=== PATIENT | male | born 1980 | race Two or more races ===

== ENCOUNTER 2018-10-02 02:05 | Inpatient (IN) | payer MEDICAID ==
[~2018-10-02] VITALS: Ht 154.9 cm; Wt 81.6 kg
[2018-10-02] VITALS (7 sets, daily range): BP systolic 109–138; BP diastolic 69–79
[2018-10-02] MEDS ORDERED: NKM (02:16)
[2018-10-02] MEDS ORDERED: Ketorolac 30mg Inj IV ONE (02:30)
[2018-10-02] MEDS ORDERED: Morphine Sulfate 4mg/ml Inj (IV/IM USE ONLY) IVP ONE (02:30)
[2018-10-02 02:52] LABS: APPEARANCE,URINE CLEAR; BILIRUBIN, URINE 1+ (NEGATIVE); GLUCOSE, URINE (UA) NEGATIVE (NEGATIVE); KETONES,URINE 1+ (NEGATIVE); LEUKOCYTE ESTERASE ,URINE 1+ (NEGATIVE); NITRITE,URINE NEGATIVE (NEGATIVE); PH,URINE 5 (4.5-8.0); PROTEIN,URINE 2+ (NEGATIVE); UROBILINOGEN,URINE 1 MG/DL (0.0-1.0)
[2018-10-02 02:53] LABS: BASOPHILS % (AUTO) 0.7 % (0.0-2.0); EOSINOPHILS % (AUTO) 0.4 % (0.0-3.0); HEMATOCRIT 50.5 % (42.0-52.0); HEMOGLOBIN 17.1 G/DL (14.2-18.0); LYMPHOCYTES % (AUTO) 12.7 % (20.0-45.0); MEAN CORPUSCULAR VOLUME 85 FL (80-99); MONOCYTES % (AUTO) 7.5 % (1.0-10.0); NEUTROPHILS % (AUTO) 78.7 % (45.0-75.0); PLATELET COUNT 324 K/UL (150-450); RED BLOOD COUNT 5.93 M/UL (4.70-6.10); RED CELL DISTRIBUTION WIDTH 10.5 % (11.6-14.8); WHITE BLOOD COUNT 16.1 K/UL (4.8-10.8)
[2018-10-02 03:02] LABS: ANION GAP 11 mmol/L (5-15); BLOOD UREA NITROGEN 20 mg/dL (7-18); CALCIUM 9.1 MG/DL (8.5-10.1); CARBON DIOXIDE 24 MMOL/L (21-32); CHLORIDE 101 MMOL/L (98-107); CREATININE 1.6 MG/DL (0.55-1.30); POTASSIUM 3.6 MMOL/L (3.5-5.1); SODIUM 136 MMOL/L (136-145)
[2018-10-02 03:11] LABS: COLOR,URINE YELLOW
[2018-10-02 03:12] LABS: ALANINE AMINOTRANSFERASE 56 U/L (12-78); ALBUMIN 3.8 G/DL (3.4-5.0); ALBUMIN/GLOBULIN RATIO 0.9 (1.0-2.7); ALKALINE PHOSPHATASE 93 U/L (46-116); ASPARTATE AMINO TRANSFERASE 22 U/L (15-37); BILIRUBIN,TOTAL 1.1 MG/DL (0.2-1.0)
[2018-10-02 03:20] LABS: BILIRUBIN,DIRECT 0.2 MG/DL (0.0-0.3)
[2018-10-02] MEDS ORDERED: cefTRIAXone 1 GM in NS 55 ML IVPB ONE (04:00)
[2018-10-02] MEDS ORDERED: Tamsulosin 0.4mg cap ORAL ONE (04:15)
--- NOTE | 2018-10-02 05:14 | Emergency Room Report ---
History of Present Illness General Chief Complaint: Abdominal Pain Source: Patient Present Illness HPI 38-year-old male presents ED for evaluation. Complaining of sided abdominal pain 2 weeks. Left-sided, radiating towards the groin, 10 out of 10, sharp. States that he was seen at another ER he was told he had kidney stones. Does not remember which ER. Does not know what medications he was prescribed. Denies fevers or chills. Notes nausea and vomiting. Denies chest pain or shortness of breath. No other aggravating relieving factors. Denies any other associated symptoms Allergies: Coded Allergies: No Known Allergies (Unverified , 10/02/18) Patient History Past Medical History: other - kidney stones Past Surgical History: none Pertinent Family History: none Social History: Denies: smoking, alcohol use, drug use Immunizations: UTD Reviewed Nursing Documentation: PMH: Agreed; PSxH: Agreed Nursing Documentation-PM Past Medical History: No Stated History Hx Neurological Problems: Yes - renal stone Review of Systems All Other Systems: negative except mentioned in HPI Physical Exam Vital Signs Date Time Temp Pulse Resp B/P (MAP) Pulse Ox O2 Delivery O2 Flow Rate FiO2 10/02/18 02:10 97.7 93 18 130/86 96 Room Air Sp02 EP Interpretation: reviewed, normal General Appearance: alert, GCS 15, non-toxic, mild distress Head: normocephalic, atraumatic Eyes: bilateral eye normal inspection, bilateral eye PERRL ENT: hearing grossly normal, normal pharynx, no angioedema, normal voice Neck: full range of motion, supple/symm/no masses Respiratory: chest non-tender, lungs clear, normal breath sounds, speaking full sentences Cardiovascular #1: regular rate, rhythm, no edema Cardiovascular #2: 2+ carotid (R), 2+ carotid (L), 2+ radial (R), 2+ radial (L) , 2+ dorsalis pedis (R), 2+ dorsalis pedis (L) Gastrointestinal: normal bowel sounds, soft, non-distended, no guarding, no rebound, tenderness Rectal: deferred Genitourinary: normal inspection, CVA tenderness (L) Musculoskeletal: back normal, gait/station normal, normal range of motion, non- tender Neurologic: alert, oriented x3, responsive, motor strength/tone normal, sensory intact, speech normal Psychiatric: judgement/insight normal, memory normal, mood/affect normal, no suicidal/homicidal ideation Reflexes: 3+ bicep (R), 3+ bicep (L), 3+ tricep (R), 3+ tricep (L), 3+ knee (R) , 3+ knee (L) Skin: normal color, no rash, warm/dry, well hydrated Lymphatic: no adenopathy Medical Decision Making Diagnostic Impression: Primary Impression: Kidney stone Additional Impressions: Renal insufficiency Pyelonephritis ER Course Hospital Course 38-year-old M presents to ED with L flank pain Differential diagnosis includes-appendicitis, cholecystitis, kidney stone, pyelonephritis Clinical course Patient placed on stretcher. After initial history and physical I ordered labs , IV fluids, pain medications and CT scan Labs - marked leukocytosis, Cr 1.6, LFTs normal, UA - gross blood + bacteria CT scan shows 4mm stone on L with hydronephrosis/perinephric stranding Given leukocytosis, perinephric stranding I believe patient should be admitted. Antibiotics given. given flomax Dr Tay (urology) consulted. patient will be admitted to Dr Arrington I feel this is a highly complex case requiring extensive working including EKG/ Rhythm strip, Xray/CT/US, Blood/urine lab work, repeat exams while in ED, and administration of strong opiates/narcotics for pain control, admission to hospital or close patient follow up. Diagnosis - kidney stone, pyelonephritis, renal insufficiency Admitted to floor in serious condition Labs Test 10/02/18 02:18 10/02/18 02:39 Urine Color Yellow Urine Appearance Clear Urine pH 5 (4.5-8.0) Urine Specific [place] 1.030 (1.005-1.035) Urine Protein 2+ (NEGATIVE) Urine Glucose (UA) Negative (NEGATIVE) Urine Ketones 1+ (NEGATIVE) Urine Blood 5+ (NEGATIVE) Urine Nitrite Negative (NEGATIVE) Urine Bilirubin 1+ (NEGATIVE) Urine Ictotest Positive (NEGATIVE) Urine Urobilinogen 1 MG/DL (0.0-1.0) Urine Leukocyte Esterase 1+ (NEGATIVE) Urine RBC 40-60 /HPF (0 - 0) Urine WBC 0-2 /HPF (0 - 0) Urine Squamous Epithelial Cells Few /LPF (NONE/OCC) Urine Calcium Oxalate Crystals Many /LPF (NONE) Urine Bacteria Moderate /HPF (NONE) Urine Mucus Moderate /LPF (NONE/OCC) White Blood Count 16.1 K/UL (4.8-10.8) Red Blood Count 5.93 M/UL (4.70-6.10) Hemoglobin 17.1 G/DL (14.2-18.0) Hematocrit 50.5 % (42.0-52.0) Mean Corpuscular Volume 85 FL (80-99) Mean Corpuscular Hemoglobin 28.9 PG (27.0-31.0) Mean Corpuscular Hemoglobin Concent 33.9 G/DL (32.0-36.0) Red Cell Distribution Width 10.5 % (11.6-14.8) Platelet Count 324 K/UL (150-450) Mean Platelet Volume 6.2 FL (6.5-10.1) Neutrophils (%) (Auto) 78.7 % (45.0-75.0) Lymphocytes (%) (Auto) 12.7 % (20.0-45.0) Monocytes (%) (Auto) 7.5 % (1.0-10.0) Eosinophils (%) (Auto) 0.4 % (0.0-3.0) Basophils (%) (Auto) 0.7 % (0.0-2.0) Sodium Level 136 MMOL/L (136-145) Potassium Level 3.6 MMOL/L (3.5-5.1) Chloride Level 101 MMOL/L (98-107) Carbon Dioxide Level 24 MMOL/L (21-32) Anion Gap 11 mmol/L (5-15) Blood Urea Nitrogen 20 mg/dL (7-18) Creatinine 1.6 MG/DL (0.55-1.30) Estimat Glomerular Filtration Rate 48.9 mL/min (>60) Glucose Level 118 MG/DL (74-106) Calcium Level 9.1 MG/DL (8.5-10.1) Total Bilirubin 1.1 MG/DL (0.2-1.0) Direct Bilirubin 0.2 MG/DL (0.0-0.3) Aspartate Amino Transf (AST/SGOT) 22 U/L (15-37) Alanine Aminotransferase (ALT/SGPT) 56 U/L (12-78) Alkaline Phosphatase 93 U/L (46-116) Total Protein 7.9 G/DL (6.4-8.2) Albumin 3.8 G/DL (3.4-5.0) Globulin 4.1 g/dL Albumin/Globulin Ratio 0.9 (1.0-2.7) Lipase 315 U/L (73-393) CT/MRI/US Diagnostic Results CT/MRI/US Diagnostic Results : Imaging Test Ordered: CT A/P Impression 4 mm stone is seen in the distal left ureter resulting in mild left-sided hydroureteronephrosis associated perinephric fat stranding. Last Vital Signs Date Time Temp Pulse Resp B/P (MAP) Pulse Ox O2 Delivery O2 Flow Rate FiO2 10/02/18 02:56 88 18 Room Air 10/02/18 02:10 97.8 138/79 97 Status: improved Disposition: ADMITTED INPATIENT Condition: Serious Referrals: NOT CHOSEN IPA/,REFERRING (PCP) Baudilio House MD Oct 02, 2018 05:14
[2018-10-02] MEDS ORDERED: IBUPROFEN100 M2 PO (06:33)
--- NOTE | 2018-10-02 09:05 | Consultation ---
History of Present Illness General Date patient seen: Oct 02, 2018 Present Illness Allergies: Coded Allergies: No Known Allergies (Unverified , 10/02/18) Medication History Scheduled No Known Medications* (NKM - No Known Medications*), 0 ., (Reported) Miscellaneous Medications Ibuprofen (Ibuprofen), 600 MG PO, (Reported) Patient History Healthcare decision maker Resuscitation status Advanced Directive on File Physical Exam Last 24 Hour Vital Signs Date Time Temp Pulse Resp B/P (MAP) Pulse Ox O2 Delivery O2 Flow Rate FiO2 10/02/18 06:15 98.0 75 18 115/74 (88) 97 10/02/18 06:00 98.4 77 18 129/69 100 Room Air 10/02/18 05:50 98.4 77 18 129/69 100 Room Air 10/02/18 02:56 88 18 Room Air 10/02/18 02:10 97.8 88 18 138/79 97 Room Air 10/02/18 02:10 97.7 93 18 130/86 96 Room Air Laboratory Tests Test 10/02/18 02:18 10/02/18 02:39 Urine Color Yellow Urine Appearance Clear Urine pH 5 (4.5-8.0) Urine Specific [place] 1.030 (1.005-1.035) Urine Protein 2+ (NEGATIVE) H Urine Glucose (UA) Negative (NEGATIVE) Urine Ketones 1+ (NEGATIVE) H Urine Blood 5+ (NEGATIVE) H Urine Nitrite Negative (NEGATIVE) Urine Bilirubin 1+ (NEGATIVE) H Urine Ictotest Positive (NEGATIVE) Urine Urobilinogen 1 MG/DL (0.0-1.0) H Urine Leukocyte Esterase 1+ (NEGATIVE) H Urine RBC 40-60 /HPF (0 - 0) H Urine WBC 0-2 /HPF (0 - 0) Urine Squamous Epithelial Cells Few /LPF (NONE/OCC) Urine Calcium Oxalate Crystals Many /LPF (NONE) Urine Bacteria Moderate /HPF (NONE) H Urine Mucus Moderate /LPF (NONE/OCC) H White Blood Count 16.1 K/UL (4.8-10.8) H Red Blood Count 5.93 M/UL (4.70-6.10) Hemoglobin 17.1 G/DL (14.2-18.0) Hematocrit 50.5 % (42.0-52.0) Mean Corpuscular Volume 85 FL (80-99) Mean Corpuscular Hemoglobin 28.9 PG (27.0-31.0) Mean Corpuscular Hemoglobin Concent 33.9 G/DL (32.0-36.0) Red Cell Distribution Width 10.5 % (11.6-14.8) L Platelet Count 324 K/UL (150-450) Mean Platelet Volume 6.2 FL (6.5-10.1) L Neutrophils (%) (Auto) 78.7 % (45.0-75.0) H Lymphocytes (%) (Auto) 12.7 % (20.0-45.0) L Monocytes (%) (Auto) 7.5 % (1.0-10.0) Eosinophils (%) (Auto) 0.4 % (0.0-3.0) Basophils (%) (Auto) 0.7 % (0.0-2.0) Sodium Level 136 MMOL/L (136-145) Potassium Level 3.6 MMOL/L (3.5-5.1) Chloride Level 101 MMOL/L (98-107) Carbon Dioxide Level 24 MMOL/L (21-32) Anion Gap 11 mmol/L (5-15) Blood Urea Nitrogen 20 mg/dL (7-18) H Creatinine 1.6 MG/DL (0.55-1.30) H Estimat Glomerular Filtration Rate 48.9 mL/min (>60) Glucose Level 118 MG/DL (74-106) H Calcium Level 9.1 MG/DL (8.5-10.1) Total Bilirubin 1.1 MG/DL (0.2-1.0) H Direct Bilirubin 0.2 MG/DL (0.0-0.3) Aspartate Amino Transf (AST/SGOT) 22 U/L (15-37) Alanine Aminotransferase (ALT/SGPT) 56 U/L (12-78) Alkaline Phosphatase 93 U/L (46-116) Total Protein 7.9 G/DL (6.4-8.2) Albumin 3.8 G/DL (3.4-5.0) Globulin 4.1 g/dL Albumin/Globulin Ratio 0.9 (1.0-2.7) L Lipase 315 U/L (73-393) Height (Feet): 5 Height (Inches): 6.00 Weight (Pounds): 186 Medications Current Medications Medications (Trade) Dose Ordered Sig/Sussy Route PRN Reason Start Time Stop Time Status Last Admin Dose Admin Acetaminophen (Tylenol) 650 mg Q4H PRN ORAL Mild Pain/Temp > 100.5 10/02/18 08:00 11/01/18 07:59 Ceftriaxone Sodium 1 gm/ Dextrose 55 ml @ 110 mls/hr DAILY IVPB 10/02/18 09:30 10/09/18 09:29 Ketorolac Tromethamine (Toradol 30mg) 15 mg Q6HR IV 10/02/18 08:30 10/07/18 08:29 Sodium Chloride 1,000 ml @ 70 mls/hr [id number] IV 10/02/18 08:00 11/01/18 07:59 Assessment/Plan Assessment/Plan seen dictated Lazarus Valdivia Oct 02, 2018 09:05
[2018-10-02] MEDS ORDERED: Norco 5mg/325mg tab ORAL PRN (09:15)
[2018-10-02] MEDS: Ketorolac 30mg Inj IV SCH ×2 (09:19→12:00)
--- NOTE | 2018-10-02 10:05 | Diagnostic Imaging Report ---
Indication: Epigastric pain and flank pain for one week Technique: Spiral acquisitions obtained through the abdomen and pelvis. No oral or IV contrast, per urinary stone protocol. Multiplanar reconstructions were generated. Total dose length product 906.96 mGycm. CTDIvol(s) 16.58 mGy. Dose reduction achieved using automated exposure control Comparison: None Findings: 5 x 4 mm calculus is seen in the distal left ureter approximately 2 cm proximal to the ureterovesical junction. There is resultant mild left hydroureter and hydronephrosis. There is slight perinephric fat stranding. No right renal or ureteral calculi, hydronephrosis, or hydroureter. Lack of IV contrast limits assessment of the renal parenchyma. No gross renal parenchymal mass or cyst demonstrated. Lack of IV contrast limits assessment of the other solid organs. The liver, gallbladder, bile ducts, pancreas, spleen, adrenals are unremarkable. No retroperitoneal or mesenteric mass or adenopathy. No pelvic mass or adenopathy. The appendix is normal. No evidence of diverticulosis or diverticulitis. No small bowel distention. No free or loculated intraperitoneal gas or fluid is evident. The included lung bases demonstrate posterior dependent atelectatic changes. The bones demonstrate degenerative spondylosis changes. Impression: Positive for 5 x 4 mm left distal ureteral calculus, resulting in mild hydronephrosis and hydroureter No other significant abnormality demonstrated This agrees with the preliminary interpretation provided overnight by [facility] teleradiology service. The CT scanner at [facility] is accredited by the [employer] and the scans are performed using protocols designed to limit radiation exposure to as low as reasonably achievable to attain images of sufficient resolution adequate for diagnostic evaluation.
[2018-10-02] MEDS: cefTRIAXone 1 GM in D5W 55 ML IVPB SCH (10:24)
--- NOTE | 2018-10-02 16:33 | Consultation ---
Consult Note Consult Note asked to eval for Cr 1.6 38-year-old male presents ED for evaluation. Complaining of sided abdominal pain 2 weeks. Left-sided, radiating towards the groin, 10 out of 10, sharp. States that he was seen at another ER he was told he had kidney stones. Does not remember which ER. Does not know what medications he was prescribed. Denies fevers or chills. Notes nausea and vomiting. Denies chest pain or shortness of breath. No other aggravating relieving factors. Denies any other associated symptoms No Known Allergies (Unverified , 10/02/18) Past Medical History: No Stated History Hx Neurological Problems: Yes - renal stone examined data reviewed Assessment/Plan Renal failure- dehydration kidney stone Pyelonephritis Hydrate monitor renal parameters avoid nephrotoxics Uro? Mahendra Oshea MD Oct 02, 2018 16:33
[2018-10-02] MEDS ORDERED: Hydromorphone 0.5mg/0.5ml inj IVP PRN ×2 (16:45)
[2018-10-02] MEDS: D5NS 1,000 ML IV SCH (17:16)
--- NOTE | 2018-10-02 18:15 | Consultation ---
DATE OF CONSULTATION: 10/02/2018 INFECTIOUS DISEASES CONSULTATION CONSULTING PHYSICIAN: Trell Palacio M.D. PRIMARY ATTENDING PHYSICIAN: Casey Arrington M.D. REASON FOR CONSULTATION: Pyelonephritis. HISTORY OF PRESENT ILLNESS: The patient is a 38-year-old male admitted today complaining of abdominal pain and nausea. The patient symptoms started two weeks ago. He went to another medical facility. He was diagnosed with having a stone. He does not remember passing a stone. At the time of admission had leukocytosis of 16.1. PAST MEDICAL HISTORY: Insignificant. ALLERGIES: No known drug allergies. MEDICATIONS: Getting ceftriaxone, Tylenol + hydrocodone, acetaminophen, sodium chloride. SOCIAL HISTORY: Originally from [facility]. Work with glass. . Denies alcohol, drug abuse, or smoking. REVIEW OF SYSTEMS: No fever. No chills. Had nausea. No vomiting. Had change in urine color, did become slightly red, has abdominal pain in the left lower abdomen. PHYSICAL EXAMINATION: VITAL SIGNS: Temperature 98, pulse 74, blood pressure 116/71. No fever since admission. GENERAL APPEARANCE: Well developed, no acute distress. HEAD AND NECK: [place] conjunctiva. HEART: S1 and S2 regular. LUNGS: Clear ABDOMEN: Soft. There is some tenderness in the left lower quadrant. EXTREMITIES: No edema. LABORATORY AND DIAGNOSTIC DATA: WBC 16.1, hemoglobin 17.9, hematocrit 50.5, and platelets 324. Sodium 136, potassium 3.6, chloride 101, bicarbonate 24, BUN 20, creatinine 1.6, glucose 118. CT scan of the abdomen and pelvis showed left distal ureter calculus resulting in mild hydronephrosis and hydroureter. IMPRESSION: Left hydronephrosis and hydroureter secondary to ureteral stone. May have also infection, urinary tract infection. The patient have renal failure. RECOMMENDATION: We will continue with Rocephin. The patient will follow up by the urologist. At the end of my exam, I thank Dr. Arrington for involving me in the care of this patient and we will follow up the urine culture. Trell Palacio M.D. DR: [place] JOB#: [id number] CC: JAVED
[2018-10-02] MEDS ORDERED: Tamsulosin 0.4mg cap ORAL SCH (21:00)
--- NOTE | 2018-10-02 22:15 | Consultation ---
DATE OF CONSULTATION: 10/02/2018 UROLOGY CONSULTATION: CONSULTING PHYSICIAN: Bimal Tay M.D. REFERRING PHYSICIAN: Casey Arrington M.D. CHIEF COMPLAINT/HISTORY OF PRESENT ILLNESS: I was asked by Dr. Arrington to evaluate this 38-year-old gentleman regarding a history of a distal left ureteral stone with hydronephrosis and colic secondary to same. Previously, the patient was seen at [facility] approximately a week ago. At that time, a CT scan revealed a proximal left ureteral stone by his report. He was sent home for conservative management of the same. He now presented here with a history of some recurrent left-sided abdominal and flank pain. He had a repeat CT scan revealing a 4 mm stone in the distal left ureter 2 cm above the UVJ. The patient was admitted and placed on antibiotics and Toradol. His pain has resolved, but given the above, I was asked to evaluate the patient. PAST MEDICAL HISTORY: Kidney stone. PAST SURGICAL HISTORY: None. MEDICATIONS: Please see the chart for current medications administration details. ALLERGIES: No known drug allergies. SOCIAL HISTORY: Unremarkable for tobacco, alcohol, or drug use. FAMILY HISTORY: Noncontributory. REVIEW OF SYSTEMS: A 14-system review of systems was essentially unremarkable outside the findings described above. PHYSICAL EXAMINATION: GENERAL: The patient is a young gentleman, awake, alert, oriented x4, pleasant, no obvious distress. HEENT: NC/AT. EOMI. NECK: Supple. Full range of motion. Oropharynx clear. Chest within normal limits. ABDOMEN: Soft, nontender, and nondistended. EXTREMITIES: Well perfused. No cyanosis, clubbing, or edema. BACK: No CVA tenderness to percussion. NEUROLOGIC: Nonfocal. LABORATORY DATA: White blood cell count 16.1, hematocrit 50.5, and platelets 324. Sodium 136, potassium 3.6, chloride 101, bicarbonate 24, BUN 20, creatinine 1.6, glucose 118, and calcium 9.1. LFTs within normal limits. Urinalysis, specific gravity 1.030, pH 5.0. Dip test notable for 2+ protein, 1+ ketones, 5+ occult blood, 1+ bilirubin, 1+ leukocyte esterase. Microanalysis with 40 to 60 red and 0 to 2 white blood cells per high-power field and moderate bacteria seen. DIAGNOSTIC IMAGING: CT scan of the abdomen and pelvis reveals a 4 x 5 mm distal left ureteral calculus approximately 2 cm proximal to the ureterovesical junction. There is mild hydronephrosis and hydroureter secondary to the same. There is no other significant abnormality demonstrated. ASSESSMENT AND PLAN: In summary, the patient is a 38-year-old gentleman with a history of a 4 mm stone in the distal left ureter. He was previously seen at [facility] and the stone was in the proximal ureter. He was admitted for pain control, but feels better after antibiotics and Toradol. His physical exam does not reveal any CVA tenderness or abdominal tenderness. Laboratory data is notable for elevated white blood cell count and a borderline creatinine. Diagnostic imaging reveals a stone described above. The patient's stone is migrating and moving and appears to be in the process of passing. It is now close to the ureterovesical junction. I would recommend sending him home with Flomax 0.4 mg p.o. daily and on hyperhydration in an effort to pass the stone. He understands that the stone has a good chance of passing on its own, but if it has not passed within a week or 2, that he needs to follow up with a plan to contact the provider to ensure that it is removed if necessary. The patient verbalized understanding of the same. Thank you for allowing me to participate in the care of this nice young man. Please do not hesitate to contact me for any questions that you may further have regarding his care. I will be happy to see him with you as needed. Bimal Tay M.D. DR: EDDIE JOB#: [id number] CC:
[2018-10-03] VITALS: BP 120/75
--- NOTE | 2018-10-03 02:00 | Consultation ---
DATE OF CONSULTATION: 10/02/2018 PAIN MANAGEMENT CONSULTATION CONSULTING PHYSICIAN: Ping Arshad M.D. REFERRING PHYSICIAN: Casey Arrington M.D. PHYSICIAN CRIBBING SETTER: YUNI Dick. CHIEF COMPLAINT: Left flank pain. HISTORY OF PRESENT ILLNESS: This is a 38-year-old male who is being seen on the Med/Surg floor of [facility] for initial pain management consultation. The patient was admitted under the care of Dr. Arrington complaining of left flank pain over the past 2 weeks. He is rating the pain as 9/10, it is a sharp pain. He was found to have kidney stones and hydronephrosis and pyelonephritis. He is being seen by an urologist at this time. We were consulted so that the patient would have adequate pain control while here in the hospital. PAST MEDICAL HISTORY: Kidney stones. SURGICAL HISTORY: Denies. ALLERGIES: No known drug allergies. SOCIAL HISTORY: Denies smoking tobacco, drinking alcohol, or IV drug abuse. REVIEW OF SYSTEMS: Denies rash, fever, chills, sweating, dizziness, drowsiness, blurred vision, sore throat, or change in weight. No shortness of breath or chest pain. No nausea, vomiting, diarrhea, or blood in the stool or urine. No bowel or bladder incontinence. No dysuria. He is complaining of flank pain. PHYSICAL EXAMINATION: GENERAL: Alert, awake, and oriented. VITAL SIGNS: Blood pressure 116/74, heart rate 75, oxygen saturation 93%, respirations 18, and temperature 98.6 degrees Fahrenheit. HEENT: PERRLA. NECK: Range of motion is full in all directions. No tenderness to paracervical muscles. No adenopathy. LUNGS: Decreased breath sounds bilaterally. HEART: Regular. ABDOMEN: Obese. BACK: CVA tenderness. EXTREMITIES: No cyanosis. No clubbing. No edema. NEUROLOGIC: Nonfocal. ASSESSMENT AND PLAN: This is a 38-year-old male with pyelonephritis, kidney stones, back pain. We will start the patient on [place] 5/325mg PO 1 tab Q4H PRN pain. D/w Dr. Arshad and he concurred. Thank you for consultation. Ping Arshad M.D. YUNI Dick DR: LOIDA JOB#: [id number] CC: JAVED
--- NOTE | 2018-10-03 02:30 | History and Physical Report ---
DATE OF ADMISSION: 10/02/2018 HISTORY OF PRESENT ILLNESS: The patient admitted for kidney stones, pyelonephritis. The patient has been having pain in the groin for a couple of days. He has a history of smoking. Some mild hematuria is noted. The patient speaks Latvian only. However, denies nausea, vomiting, or diarrhea. PAST MEDICAL HISTORY: Significant for kidney stones. PAST SURGICAL HISTORY: None. MEDICATIONS: None. ALLERGIES: No known allergies. SOCIAL HISTORY: History of smoking. No history of alcohol or illicit drugs. FAMILY HISTORY: Noncontributory. REVIEW OF SYSTEMS: HEENT: Denies headaches. PULMONARY: Denies shortness of breath. Denies cough. CARDIOVASCULAR: Denies chest pain. GASTROINTESTINAL: Denies nausea, vomiting, or diarrhea. The patient does have groin/flank pain for a couple of days. CENTRAL NERVOUS SYSTEM: No change in vision or speech pattern. PHYSICAL EXAMINATION: VITAL SIGNS: Temperature 98.5, pulse is 94, and blood pressure is 170/69. HEENT: PERRLA. NECK: Supple. No lymphadenopathy. CHEST: Clear to auscultation. CARDIOVASCULAR: Regular rate and rhythm. No murmurs or extra sounds. GASTROINTESTINAL: Soft, nontender, and nondistended. No organomegaly. EXTREMITIES: No edema. Moves all four extremities. NEUROLOGIC: Sensory intact to light touch. Reflexes equal on both sides. Dr. Tay has been consulted to see this patient as well as Dr. Trell Palacio for the leukocytosis. WBC of , hemoglobin 17. Sodium 136, potassium 3.6, BUN of 20, and creatinine 1.6. Dr. Oshea also consulted for the azotemia. ASSESSMENT/PLAN: Azotemia, leukocytosis, kidney stones. Dr. Tay, Dr. Oshea, and Dr. Palacio have been consulted to see the patient. Casey Arrington M.D. DR: EMI JOB#: [id number] CC:
[2018-10-03] MEDS: D5NS 1,000 ML IV SCH (03:17)
[2018-10-03 04:00] VITALS: BP 108/64
[2018-10-03 08:11] LABS: EOSINOPHILS % (AUTO) 1.7 % (0.0-3.0); HEMATOCRIT 49.2 % (42.0-52.0); HEMOGLOBIN 16.8 G/DL (14.2-18.0); LYMPHOCYTES % (AUTO) 25.3 % (20.0-45.0); MEAN CORPUSCULAR VOLUME 86 FL (80-99); MONOCYTES % (AUTO) 7.8 % (1.0-10.0); NEUTROPHILS % (AUTO) 64.2 % (45.0-75.0); PLATELET COUNT 320 K/UL (150-450); RED BLOOD COUNT 5.72 M/UL (4.70-6.10); RED CELL DISTRIBUTION WIDTH 10.8 % (11.6-14.8); WHITE BLOOD COUNT 6.3 K/UL (4.8-10.8)
[2018-10-03 08:22] VITALS: BP 130/80
[2018-10-03] MEDS: cefTRIAXone 1 GM in D5W 55 ML IVPB SCH (08:25)
[2018-10-03 08:53] LABS: ALANINE AMINOTRANSFERASE 42 U/L (12-78); ALBUMIN 3.2 G/DL (3.4-5.0); ALBUMIN/GLOBULIN RATIO 0.9 (1.0-2.7); ALKALINE PHOSPHATASE 86 U/L (46-116); ANION GAP 6 mmol/L (5-15); ASPARTATE AMINO TRANSFERASE 18 U/L (15-37); BLOOD UREA NITROGEN 10 mg/dL (7-18); CALCIUM 8.3 MG/DL (8.5-10.1); CARBON DIOXIDE 25 MMOL/L (21-32); CHLORIDE 109 MMOL/L (98-107); CHOLESTEROL 166 MG/DL (< 200); HDL CHOLESTEROL 37 MG/DL (40-60); POTASSIUM 3.5 MMOL/L (3.5-5.1); SODIUM 140 MMOL/L (136-145); TRIGLYCERIDES 113 MG/DL (30-150)
[2018-10-03] MEDS ORDERED: Pantoprazole Inj IVP SCH (09:00)
[2018-10-03] MEDS ORDERED: TAMSULOSIN HCL0.4 MG ORAL (09:29)
--- NOTE | 2018-10-03 14:07 | Nephrology Progress Note ---
Assessment/Plan Problem List: (1) Renal insufficiency (2) Kidney stone (3) Pyelonephritis Assessment Renal failure- cr wnl dehydration- resolved kidney stone Pyelonephritis Plan stop Hydrate monitor renal parameters avoid nephrotoxics Uro? ? DC Subjective ROS Limited/Unobtainable: No Interval Events/Complaints seen 9 am Objective Objective Last 24 Hour Vital Signs Date Time Temp Pulse Resp B/P (MAP) Pulse Ox O2 Delivery O2 Flow Rate FiO2 10/03/18 09:00 Room Air 10/03/18 08:22 98.4 76 19 130/80 (97) 100 10/03/18 04:00 97.7 75 19 108/64 (79) 97 10/03/18 00:00 97.9 70 19 120/75 (90) 96 10/02/18 21:30 Room Air 10/02/18 20:00 98.5 85 19 118/72 (87) 97 10/02/18 16:00 98.1 87 18 109/69 (82) 97 Intake and Output 10/02/18 10/03/18 19:00 07:00 Intake Total 590 ml 1900 ml Output Total 650 ml Balance 590 ml 1250 ml Intake Oral 800 ml IV Total 590 ml 1100 ml Output Urine Total 650 ml # Voids 2 Current Medications Medications (Trade) Dose Ordered Sig/Sussy Route PRN Reason Start Time Stop Time Status Last Admin Dose Admin Acetaminophen (Tylenol) 650 mg Q4H PRN ORAL Mild Pain/Temp > 100.5 10/02/18 08:00 11/01/18 07:59 Acetaminophen/ Hydrocodone Bitart ([place] 5/325) 1 tab Q4H PRN ORAL Moderate Pain (Pain Scale 4-6) 10/02/18 09:15 10/09/18 09:14 Ceftriaxone Sodium 1 gm/ Dextrose 55 ml @ 110 mls/hr DAILY IVPB 10/02/18 09:30 10/09/18 09:29 10/03/18 08:25 Dextrose/Sodium Chloride 1,000 ml @ 100 mls/hr Q10H IV 10/02/18 16:41 11/01/18 16:40 10/03/18 03:17 Hydromorphone HCl (Dilaudid) 0.5 mg Q4H PRN IVP SEVERE PAIN 10/02/18 16:45 10/09/18 16:44 Pantoprazole (Protonix) 40 mg DAILY IVP 10/03/18 09:00 11/02/18 08:59 10/03/18 08:25 Tamsulosin HCl (Flomax) 0.4 mg BEDTIME ORAL 10/02/18 21:00 11/01/18 20:59 10/02/18 20:48 Laboratory Tests 10/03/18 07:40: White Blood Count 6.3#, Red Blood Count 5.72, Hemoglobin 16.8, Hematocrit 49.2, Mean Corpuscular Volume 86, Mean Corpuscular Hemoglobin 29.3, Mean Corpuscular Hemoglobin Concent 34.1, Red Cell Distribution Width 10.8L, Platelet Count 320, Mean Platelet Volume 6.0L, Neutrophils (%) (Auto) 64.2, Lymphocytes (%) (Auto) 25.3, Monocytes (%) (Auto) 7.8, Eosinophils (%) (Auto) 1.7, Basophils (%) (Auto ) 1.0, Sodium Level 140, Potassium Level 3.5, Chloride Level 109H, Carbon Dioxide Level 25, Anion Gap 6, Blood Urea Nitrogen 10, Creatinine 1.0, Estimat Glomerular Filtration Rate > 60, Glucose Level 90, Uric Acid 5.4, Calcium Level 8.3L, Phosphorus Level 3.0, Magnesium Level 2.1, Total Bilirubin 1.0, Gamma Glutamyl Transpeptidase 82, Aspartate Amino Transf (AST/SGOT) 18, Alanine Aminotransferase (ALT/SGPT) 42, Alkaline Phosphatase 86, Pro-B-Type Natriuretic Peptide 70, Total Protein 6.6, Albumin 3.2L, Globulin 3.4, Albumin/Globulin Ratio 0.9L, Triglycerides Level 113, Cholesterol Level 166, LDL Cholesterol 125H , HDL Cholesterol 37L, Cholesterol/HDL Ratio 4.5H, Lipase 114, Thyroid Stimulating Hormone (TSH) 1.838 Height (Feet): 5 Height (Inches): 1.00 Weight (Pounds): 180 General Appearance: no apparent distress Objective no change Mahendra Oshea MD Oct 03, 2018 14:07
[2018-10-03] MEDS ORDERED: D5NS 1000ml IV ONE (15:08)
--- NOTE | 2018-10-04 08:31 | Discharge Summary ---
Discharge Summary Discharge Summary _ DATE OF ADMISSION: 10/02/2018 DATE OF DISCHARGE: 10/03/2018 DISCHARGED BY: Dr. Casey Henry CONSULTANTS: Dr. Mahendra Tay BRIEF HOSPITAL COURSE: Patient is a 38-year-old female, who presented to ED for evaluation of abdominal pain. Patient was complaining of abdominal pain for 2 weeks. Pain was left-sided, radiating towards the groin, 10 out of 10 and is sharp. He was seen at another ER and was told to have kidney stones. There was nausea and vomiting. He denied chest pain or shortness of breath. No aggravating or relieving factors. On evaluation at the ED, vital signs were stable. Patient was afebrile. Blood work showed evidence of leukocytosis with WBC 16. Hemoglobin and hematocrit were stable. BUN was elevated to 1.6, creatinine 20. LFTs were normal. Lipase normal. Urinalysis showed 1+ leukocyte esterase, 40-60 RBC, 0-2 WBC, moderate bacteria, 5+ blood, 1+ ketones, 2+ protein. CT of the abdomen and pelvis showed a 4 mm stone in the distal left ureter 2 cm above the UVJ, resulting in mild left sided hydronephrosis and associated perinephric fat stranding. He was then admitted for evaluation of kidney stone, renal insufficiency and pyelonephritis. He was given IV hydration. He was given pain management. He was started empirically on Rocephin. He underwent urology evaluation patient's stone was assessed to be migrating and moving and appears to be in the process of passing. Stone was closer to the ureterovesical junction. He was recommended Flomax p.o. daily and hyperhydration in order to pass the stone. He was told stone has a good chance of passing however if had not passed within a week or two, he needs to follow-up for stone removal. Creatinine improved. IV hydration was discontinued. He was cleared for discharge. FINAL DIAGNOSES: Kidney stones Pyelonephritis Renal insufficiency Dehydration DISPOSITION: Patient was discharged home. DISCHARGE MEDICATIONS: Refer to Discharge Medication List. DISCHARGE INSTRUCTIONS: Follow-up in a week. I have been assigned to dictate discharge summary on this account, and I was not involved in the patient's management. Olena Ponce NP Oct 04, 2018 08:31
--- NOTE | 2018-10-09 12:49 | Diagnostic Imaging Report ---
APPROVED REPORT CPT Code: 15410 Present Symptoms Lower Extremity Pain: Bilateral BILATERAL: Imaging reveals a patent deep venous system bilaterally. There is no evidence of thrombus within the femoral, popliteal or tibial segments. The greater saphenous veins are also within normal limits. Doppler indicates normal spontaneous flow within these segments.
== END 2018-10-03 10:20 | disposition home health service (06) | DRG 465 ==
LOC: EMR 02:31 → 3E 04:30 → EDBEDREQ 05:19
DX: N13.2 Hydronephrosis with renal and ureteral calculous obstruction (principal); E86.0 Dehydration; N12 Tubulo-interstitial nephritis, not specified as acute or chronic; N28.9 Disorder of kidney and ureter, unspecified
CPT/HCPCS: 36415; 74176; 80053; 80061; 81003; 82248; 82977; 83690; 83735; 83880; 84100; 84443; 84550; 85025; 86140; 87086; 93970; 96361; 96365; 96375; 99285

== ENCOUNTER 2018-10-05 04:23 | Emergency (ER) | payer MEDICAID ==
[~2018-10-05] VITALS: Ht 177.8 cm; Wt 74.8 kg
[~2018-10-05 04:23] MED LIST: IBUPROFEN100 M2 PO; NKM; TAMSULOSIN HCL0.4 MG ORAL
--- NOTE | 2018-10-05 04:40 | Emergency Room Report ---
History of Present Illness General Chief Complaint: Abdominal Pain Source: Patient Present Illness HPI Is a 38-year-old male with a history of kidney stone. He was recently admitted here and just discharged for left UVJ stone. He was doing well until tonight when he woke up for sharp pain. Decreased urination. Pain is severe to the left lower quadrant area. No hematuria. Pain is 9 out of 10. He has nausea and vomiting. No diarrhea. No fever. Allergies: Coded Allergies: No Known Allergies (Unverified , 10/02/18) Patient History Past Medical History: see triage record, old chart reviewed Past Surgical History: none Pertinent Family History: none Social History: Denies: smoking Immunizations: other Reviewed Nursing Documentation: PMH: Agreed; PSxH: Agreed Nursing Documentation-PMH Past Medical History: No Stated History Hx Cardiac Problems: No Hx Cancer: No Hx Gastrointestinal Problems: No Hx Neurological Problems: No Review of Systems Eye: Denies: eye pain, blurred vision ENT: Denies: ear pain, nose congestion, throat swelling Respiratory: Denies: cough, shortness of breath Cardiovascular: Denies: chest pain, palpitations Gastrointestinal: Reports: abdominal pain; Denies: diarrhea, nausea, vomiting Musculoskeletal: Denies: back pain, joint pain Skin: Denies: rash Neurological: Denies: headache, numbness Endocrine: Denies: increased thirst, increased urine Hematologic/Lymphatic: Denies: easy bruising All Other Systems: negative except mentioned in HPI Physical Exam Vital Signs Date Time Temp Pulse Resp B/P (MAP) Pulse Ox O2 Delivery O2 Flow Rate FiO2 10/05/18 04:28 98.1 68 20 118/72 99 Room Air vitals normal Sp02 EP Interpretation: reviewed, normal General Appearance: well appearing, no apparent distress, alert Head: normocephalic, atraumatic Eyes: bilateral eye PERRL, bilateral eye EOMI ENT: hearing grossly normal, normal pharynx Neck: full range of motion, supple, no meningismus Respiratory: chest non-tender, lungs clear, normal breath sounds Cardiovascular #1: regular rate, rhythm, no murmur Gastrointestinal: normal bowel sounds, non tender, no mass, no organomegaly, no bruit, non-distended Musculoskeletal: back normal, gait/station normal, normal range of motion Psychiatric: mood/affect normal Skin: warm/dry Medical Decision Making Diagnostic Impression: Primary Impression: Ureteral calculus, left ER Course Patient presents with persistent left ureteral stone. It appeared to be moving a little bit. No evidence of any infection. He does have small amount of bacteria in his urine. We'll put him on antibiotics. He may knee stenting. This can be done as an outpatient. Pain is well-controlled here. Lab Results Impression labs unremarkable Last Vital Signs Date Time Temp Pulse Resp B/P (MAP) Pulse Ox O2 Delivery O2 Flow Rate FiO2 10/05/18 04:28 98.1 68 20 118/72 99 Room Air Status: improved Disposition: HOME, SELF-CARE Condition: Stable Scripts Ciprofloxacin Hcl* (CIPROFLOXACIN HCL*) 500 Mg Tablet 500 MG ORAL Q12H, #14 TAB 0 Refills Prov: Steve Gutierrez MD 10/05/18 Oxycodone/Acetaminophen 5-325* (PERCOCET 5-325 MG TABLET*) 1 Each Tablet 1 TAB ORAL Q6H PRN for For Pain, #20 TAB Prov: Steve Gutierrez MD 10/05/18 Additional Instructions: Follow-up your doctor in a week. increase fluids. Follow-up with urology. This can be done with urologist here or at [facility]. Return for fever or worsening of symptoms. Steve Gutierrez MD Oct 05, 2018 04:40
[2018-10-05] MEDS: HYDROmorphone 1mg/ml Carpuject IVP ONE (04:44)
[2018-10-05 04:52] VITALS: BP 118/72
[2018-10-05 05:04] LABS: APPEARANCE,URINE SLIGHTLY CLOUDY; BILIRUBIN, URINE 1+ (NEGATIVE); COLOR,URINE BROWN; EOSINOPHILS % (AUTO) 0.9 % (0.0-3.0); GLUCOSE, URINE (UA) NEGATIVE (NEGATIVE); HEMATOCRIT 54.9 % (42.0-52.0); HEMOGLOBIN 18.5 G/DL (14.2-18.0); KETONES,URINE 1+ (NEGATIVE); LEUKOCYTE ESTERASE ,URINE 1+ (NEGATIVE); LYMPHOCYTES % (AUTO) 26.4 % (20.0-45.0); MEAN CORPUSCULAR VOLUME 85 FL (80-99); MONOCYTES % (AUTO) 8.3 % (1.0-10.0); NEUTROPHILS % (AUTO) 63.4 % (45.0-75.0); NITRITE,URINE POSITIVE (NEGATIVE); PH,URINE 5 (4.5-8.0); PLATELET COUNT 399 K/UL (150-450); PROTEIN,URINE 3+ (NEGATIVE); RED BLOOD COUNT 6.45 M/UL (4.70-6.10); RED CELL DISTRIBUTION WIDTH 10.6 % (11.6-14.8); UROBILINOGEN,URINE 1 MG/DL (0.0-1.0); WHITE BLOOD COUNT 13.1 K/UL (4.8-10.8)
[2018-10-05 05:11] VITALS: BP 144/95
[2018-10-05 05:12] LABS: ANION GAP 12 mmol/L (5-15); BLOOD UREA NITROGEN 11 mg/dL (7-18); CALCIUM 9.2 MG/DL (8.5-10.1); CARBON DIOXIDE 24 MMOL/L (21-32); CHLORIDE 105 MMOL/L (98-107); CREATININE 1.4 MG/DL (0.55-1.30); POTASSIUM 3.6 MMOL/L (3.5-5.1); SODIUM 141 MMOL/L (136-145)
--- NOTE | 2018-10-05 05:48 | Diagnostic Imaging Report ---
EXAM: CT Abdomen and Pelvis Without Intravenous Contrast CLINICAL HISTORY: 38-year-old male with abdominal pain. TECHNIQUE: Axial computed tomography images of the abdomen and pelvis without intravenous contrast. Coronal and sagittal reformatted images were created and reviewed. CTDI is 16.29 mGy and DLP is 825 mGy-cm. One or more of the following dose reduction techniques were used: automated exposure control, adjustment of the mA and/or kV according to patient size, use of iterative reconstruction technique. COMPARISON: Abdomen and pelvis CT without contrast 10/02/2018. FINDINGS: Lung bases: Unremarkable. ABDOMEN: Liver: Grossly unremarkable. Gallbladder and bile ducts: Unremarkable. Pancreas: Grossly unremarkable. Spleen: Grossly unremarkable. Adrenals: Unremarkable. Kidneys and ureters: Asymmetric mild left hydroureteronephrosis and minimal perinephric fat stranding, grossly stable compared to the prior exam. Persistent 4 mm distal ureteral stone, now at the outer border of the UVJ. Stomach and bowel: Grossly unremarkable. PELVIS: Appendix: Unremarkable. Bladder: Grossly unremarkable. Reproductive: Grossly unremarkable. ABDOMEN and PELVIS: Intraperitoneal space: No ascites or pneumoperitoneum. Bones/joints: No acute abnormality. Soft tissues: Grossly unremarkable. Vasculature: Grossly unremarkable. Lymph nodes: No pathologically enlarged lymph nodes. IMPRESSION: Persistent, grossly stable mild left hydroureteronephrosis, secondary to a persistent 4 mm distal ureteral stone, now at the outer border of the UVJ, demonstrating minimal interval distal progression compared to the recent CT.
[2018-10-05 06:11] VITALS: BP 106/68
[2018-10-05] MEDS ORDERED: PERCOCET 5-3251 EACH ORAL (06:19)
[2018-10-05] MEDS ORDERED: CIPROFLOXACIN500 M2 ORAL (06:19)
[2018-10-05 06:28] VITALS: BP 106/68
== END 2018-10-05 06:30 | disposition home or self-care (01) ==
LOC: EMR 04:46
DX: N20.1 Calculus of ureter (principal); N13.30 Unspecified hydronephrosis; R10.32 Left lower quadrant pain; Z87.442 Personal history of urinary calculi
CPT/HCPCS: 36415; 74176; 80048; 81003; 85025; 96361; 96374; 96375; 99284; J1170; J2405